=== PATIENT | female | born 1980 | race Two or more races ===

== ENCOUNTER 2020-07-28 10:45 | Inpatient (IN) | payer OTHER ==
[~2020-07-28] VITALS: Ht 160 cm; Wt 90.7 kg
[~2020-07-28 10:45] MED LIST: NIFE60TA3 PO; OBSTETRIX DHA1 EACH PO
[2020-08-06] MEDS ORDERED: IBUPROFEN800 MG PO (07:24)
[2020-08-06] MEDS ORDERED: OXYC1TAB9 PO (07:24)
== END 2020-08-06 09:56 | disposition home or self-care (01) | DRG 742 ==
LOC: O/R 08-04 06:43 → OB/GYN 08-04 06:43 → SURH 08-04 10:45 → O/R 08-04 12:06 → OB/GYN 08-04 13:49
PROVIDERS: Surgery; ADMIT Obstetrics & Gynecology Gynecology; ATTEND Obstetrics & Gynecology Gynecology
PROC: 0UB70ZZ Excision of Bilateral Fallopian Tubes, Open Approach (ICD-10-PCS; 2020-08-04)
PROC: 0UT90ZZ Resection of Uterus, Open Approach (ICD-10-PCS; principal; 2020-08-04 07:00)
PROC: 0DQN0ZZ Repair Sigmoid Colon, Open Approach (ICD-10-PCS; 2020-08-04 07:00)
DX: D25.1 Intramural leiomyoma of uterus (principal); K91.72 Accidental puncture and laceration of a digestive system organ or structure during other procedure; D25.2 Subserosal leiomyoma of uterus; N80.0 Endometriosis of uterus; N80.2 Endometriosis of fallopian tube; N72 Inflammatory disease of cervix uteri; N73.6 Female pelvic peritoneal adhesions (postinfective); N99.4 Postprocedural pelvic peritoneal adhesions